=== PATIENT | female | born 1940 | race African-American/Black ===

== ENCOUNTER → 2024-08-29 | Emergency (ER) | payer MEDICARE, MEDICAID ==
[~2024-08-29] MED LIST: FURO10VI3 IVP; INSLIS SUBCUT; MIDO5TAB4 PO; PANT40VI IV; POLY17PO43 PO; QUET25TA PO; TOBR40VI2 INH; [UNRECOGNIZED DRUG - CODE] IV
== END | disposition home or self-care (01) ==
LOC: ER 23:21
DX: R79.89 Other specified abnormal findings of blood chemistry (principal); Z53.21 Procedure and treatment not carried out due to patient leaving prior to being seen by health care provider
CPT/HCPCS: 82962

== ENCOUNTER 2024-09-06 02:53 | Inpatient (IN) | payer MEDICARE, MEDICAID ==
[~2024-09-06] VITALS: Ht 193 cm; Wt 93.5 kg
[2024-09-06] VITALS (23 sets, daily range): BP systolic 88–128; BP diastolic 37–77; PULSE 76–107; RESP 13–24; TEMP 36.6–37; O2SAT 86–100
[~2024-09-06 02:53] MED LIST changes: -POLY17PO43 PO; -TOBR40VI2 INH
[2024-09-06] MEDS ORDERED: CEFEPIME 2GM IN DEXT 5% 100ML IV ONE (03:30)
[2024-09-06] MEDS: CEFEPIME 2,000MG in DEXT 5% WATER 100ML IV NR (03:56)
[2024-09-06] MEDS: SODIUM CHLORIDE 0.9% (SEPSIS BOLUS) IV ONE (03:56)
[2024-09-06 04:00] LABS: HEMATOCRIT. 23.9 % (36.0-48.0); HEMOGLOBIN. 7.7 g/dL (12.0-16.0); MEAN PLATELET VOLUME 9.2 fl (7.4-10.4); PLATELET 115 x1000/uL (130-400); RED BLOOD CELL COUNT 2.79 mill/uL (4.2-5.4); RED CELL DISTRIBUTION WIDTH 20.2 % (11.6-14.6)
[2024-09-06 04:10] LABS: INR 1.2
[2024-09-06 04:30] LABS: LACTIC ACID 2.3 mmol/L (0.4-2.0)
[2024-09-06 04:41] LABS: CREATININE 0.6 mg/dL (0.6-1.0); UREA NITROGEN BLOOD 35 mg/dL (9-23)
[2024-09-06 04:43] LABS: ASPARTATE AMINOTRANSFERASE 28 IU/L (<34); BILIRUBIN DIRECT 0.2 mg/dL (<=3.0); BILIRUBIN TOTAL 0.5 mg/dL (0.1-1.0); PROTEIN TOTAL 6.0 g/dL (6.0-8.3)
[2024-09-06 04:48] LABS: LYMPHOCYTES % MANUAL 8.0 % (20.0-60.0); MONOCYTES % MANUAL 12.0 % (2.0-8.0); NEUTROPHILS % MANUAL 80.0 % (45.0-75.0); PLATELET ESTIMATE NORMAL; TROPONIN I HIGH SENSITIVITY 50 ng/L (3.0-34)
[2024-09-06] MEDS: VANCOMYCIN 1G PREMIX 200 ML IV ONE (04:49)
[2024-09-06] MEDS ORDERED: CEFEPIME 2GM IN DEXT 5% 100ML IV SCH (07:45)
[2024-09-06 08:22] LABS: BG BASE EXCESS 13.0 mmol/L (-2.0-3.0); BG CARBOXYHEMOGLOBIN 0.6 % (0.5-1.5); BG DEOXYHEMOGLOBIN 0.8 % (0.0-5.0); BG FRACTION INSPIRED OXYGEN 40; BG HCO3 ACT 34.7 mmol/L (21.0-28.0); BG METHEMOGLOBIN 0.3 % (0.5-1.5); BG OXYGEN SATURATION 99.2 % (94.0-98.0); BG OXYHEMOGLOBIN 98.3 % (94.0-98.0); BG PCO2 31.9 mmHg (32.0-45.0); BG PEEP (cmH2O) 5.0 cmH2O; BG PH 7.655 (7.350-7.450); BG PO2 129.1 mmHg (83.0-108.0); BG SAMPLE SITE RIGHT RADIAL; BG TIDAL VOLUME(mL) 500.0 mL; BG TOTAL HEMOGLOBIN 7.0 g/dL (12.0-16.0); BG VENT MODE VENT - AC; BG VENT RATE 16.0 set
[2024-09-06] MEDS ORDERED: FUROSEMIDE 20MG/2ML VIAL IVP SCH (10:15)
[2024-09-06] MEDS ORDERED: DEXTROSE 50% WATER 50ML SYRINGE IV PRN (11:45)
[2024-09-06] MEDS: BLOOD SUGAR DIAGNOSTIC STRIP TEST SCH (12:30)
[2024-09-06] MEDS: INSULIN LISPRO 100 UNITS/ML SUBCUT SCH (13:00)
[2024-09-06] MEDS ORDERED: PIPERACILLIN/TAZO 3.375G/50ML 50 ML IV SCH (14:00)
[2024-09-06] MEDS: FUROSEMIDE 40MG/4ML VIAL IVP SCH (14:19)
[2024-09-06] MEDS: MIDODRINE HCL 5MG TABLET PO SCH (14:20)
[2024-09-06] MEDS: GUAIFENESIN 200MG/10ML SUGAR FREE UDC PO SCH (14:20)
[2024-09-06] MEDS: ENOXAPARIN 40MG/0.4ML SYR SUBCUT SCH (14:21)
[2024-09-06] MEDS: QUETIAPINE FUMARATE 25MG TABLET PO SCH (14:21)
[2024-09-06] MEDS: IPRATROPIUM/ALBUTEROL 0.5-3(2.5)MG/3ML NEB HHN SCH (14:41)
[2024-09-06] MEDS ORDERED: CEFEPIME 2GM/100ML 100 ML IV SCH (17:00)
[2024-09-06 17:20] LABS: HEMATOCRIT. 24.0 % (36.0-48.0); HEMOGLOBIN. 7.5 g/dL (12.0-16.0); MEAN PLATELET VOLUME 9.0 fl (7.4-10.4); PLATELET 141 x1000/uL (130-400); RED BLOOD CELL COUNT 2.75 mill/uL (4.2-5.4); RED CELL DISTRIBUTION WIDTH 19.9 % (11.6-14.6)
[2024-09-06] MEDS: CEFEPIME 2,000MG in DEXT 5% WATER 100ML IV SCH (17:30)
[2024-09-06 17:48] LABS: LYMPHOCYTES % MANUAL 5.0 % (20.0-60.0); MONOCYTES % MANUAL 15.0 % (2.0-8.0); NEUTROPHILS % MANUAL 80.0 % (45.0-75.0); PLATELET ESTIMATE NORMAL
[2024-09-06] MEDS: VANCOMYCIN 1GM PMX (XELLIA) 200 ML IV SCH (18:41)
[2024-09-06] MEDS: PANTOPRAZOLE SODIUM 40 MG/VIAL IV SCH (18:41)
[2024-09-06] MEDS: ACETAMINOPHEN 325MG TABLET PO PRN (21:56)
[2024-09-07] VITALS (37 sets, daily range): BP systolic 69–133; BP diastolic 31–60; PULSE 67–100; RESP 14–30; TEMP 35.94732–36.9; O2SAT 91–100
[2024-09-07] MEDS: SODIUM CHLORIDE 0.9% 500 ML IV ONE ×2 (00:08→06:11)
[2024-09-07] MEDS: MIDODRINE HCL 5MG TABLET PO SCH (00:21)
[2024-09-07 02:58] LABS: CLARITY URINE CLEAR (CLEAR); COLOR URINE YELLOW (YELLOW); GLUCOSE URINE NEGATIVE (NEGATIVE); KETONES URINE NEGATIVE (NEGATIVE); LEUKOCYTE ESTERASE URINE 2+ (NEGATIVE); NITRITE URINE NEGATIVE (NEGATIVE); OCCULT BLOOD URINE NEGATIVE (NEGATIVE); PH URINE 5.0 (4.5-8.0); PROTEIN URINE NEGATIVE (NEGATIVE); SPECIFIC GRAVITY URINE 1.017 (1.005-1.030); UROBILINOGEN URINE 1.0 E.U./dL (0.2-1.0)
[2024-09-07 03:23] LABS: SQUAMOUS EPITHELIAL CELL URINE FEW /lpf (RARE/1+)
[2024-09-07 03:24] LABS: RBC URINE 0-2 /hpf (0-2)
[2024-09-07 03:27] LABS: BACTERIA URINE NONE SEEN; YEAST URINE 1+
[2024-09-07 06:23] LABS: CREATININE 0.5 mg/dL (0.6-1.0); UREA NITROGEN BLOOD 28 mg/dL (9-23)
[2024-09-07 06:41] LABS: PLATELET 127 x1000/uL (130-400); RED BLOOD CELL COUNT 2.29 mill/uL (4.2-5.4); RED CELL DISTRIBUTION WIDTH 19.4 % (11.6-14.6)
[2024-09-07 09:04] LABS: BG BASE EXCESS 10.7 mmol/L (-2.0-3.0); BG CARBOXYHEMOGLOBIN 0.5 % (0.5-1.5); BG DEOXYHEMOGLOBIN 1.6 % (0.0-5.0); BG FRACTION INSPIRED OXYGEN 35; BG HCO3 ACT 33.0 mmol/L (21.0-28.0); BG METHEMOGLOBIN 0.3 % (0.5-1.5); BG OXYGEN SATURATION 98.4 % (94.0-98.0); BG OXYHEMOGLOBIN 97.6 % (94.0-98.0); BG PCO2 34.5 mmHg (32.0-45.0); BG PEEP (cmH2O) 5.0 cmH2O; BG PH 7.599 (7.350-7.450); BG PO2 102.8 mmHg (83.0-108.0); BG SAMPLE SITE LEFT RADIAL; BG TIDAL VOLUME(mL) 450.0 mL; BG TOTAL HEMOGLOBIN 7.7 g/dL (12.0-16.0); BG VENT MODE VENT - AC; BG VENT RATE 12.0 set
[2024-09-07] MEDS ORDERED: LIDOCAINE HCL 1% 10 MG/ML 10ML VIAL ONE (10:47)
[2024-09-07 14:17] LABS: PHOSPHORUS 2.1 mg/dL (2.5-4.9)
[2024-09-07] MEDS: KCL 20MEQ/100ML PREMIX 100 ML IV SCH (14:17)
[2024-09-07] MEDS: POTASSIUM CHLORIDE 20MEQ/PACKET PO SCH (14:18)
[2024-09-07] MEDS: CEFEPIME 2GM/100ML 100 ML IV SCH (18:00)
[2024-09-07 20:23] LABS: PLATELET 157 x1000/uL (130-400); RED BLOOD CELL COUNT 2.87 mill/uL (4.2-5.4); RED CELL DISTRIBUTION WIDTH 18.6 % (11.6-14.6)
[2024-09-08] VITALS (23 sets, daily range): BP systolic 106–136; BP diastolic 48–99; PULSE 82–98; RESP 10–23; TEMP 36.2–37.7; O2SAT 95–100
[2024-09-08 05:17] LABS: BASOPHILS % 0.4 % (0.0-2.0); EOSINOPHILS % 2.4 % (0.0-5.0); HEMATOCRIT. 24.9 % (36.0-48.0); HEMOGLOBIN. 7.5 g/dL (12.0-16.0); LYMPHOCYTES % 8.3 % (20.0-50.0); MEAN PLATELET VOLUME 8.8 fl (7.4-10.4); MONOCYTES % 11.7 % (2.0-8.0); NEUTROPHILS % 77.2 % (40.0-76.0); PLATELET 176 x1000/uL (130-400); RED BLOOD CELL COUNT 2.76 mill/uL (4.2-5.4); RED CELL DISTRIBUTION WIDTH 19.3 % (11.6-14.6)
[2024-09-08 05:42] LABS: CREATININE 0.5 mg/dL (0.6-1.0)
[2024-09-08 05:43] LABS: UREA NITROGEN BLOOD 28 mg/dL (9-23)
[2024-09-08] MEDS: VANCOMYCIN 1.25GM/250ML 250 ML IV SCH (21:12)
[2024-09-08] MEDS ORDERED: NALOXONE HCL 0.4MG/ML VIAL IV PRN (22:45)
[2024-09-09] VITALS (21 sets, daily range): BP systolic 99–136; BP diastolic 54–77; PULSE 82–100; RESP 15–27; TEMP 36.6–37.1; O2SAT 96–100
[2024-09-09 07:09] LABS: HEMATOCRIT. 24.5 % (36.0-48.0); HEMOGLOBIN. 7.8 g/dL (12.0-16.0); MEAN PLATELET VOLUME 8.4 fl (7.4-10.4); PLATELET 214 x1000/uL (130-400); RED BLOOD CELL COUNT 2.83 mill/uL (4.2-5.4); RED CELL DISTRIBUTION WIDTH 18.3 % (11.6-14.6)
[2024-09-09 07:27] LABS: CREATININE 0.4 mg/dL (0.6-1.0); UREA NITROGEN BLOOD 24 mg/dL (9-23)
[2024-09-09 11:41] LABS: BG BASE EXCESS 7.9 mmol/L (-2.0-3.0); BG CARBOXYHEMOGLOBIN 0.7 % (0.5-1.5); BG DEOXYHEMOGLOBIN 1.5 % (0.0-5.0); BG FRACTION INSPIRED OXYGEN 35; BG HCO3 ACT 30.8 mmol/L (21.0-28.0); BG METHEMOGLOBIN 0.3 % (0.5-1.5); BG OXYGEN SATURATION 98.5 % (94.0-98.0); BG OXYHEMOGLOBIN 97.5 % (94.0-98.0); BG PCO2 36.2 mmHg (32.0-45.0); BG PEEP (cmH2O) 5.0 cmH2O; BG PH 7.548 (7.350-7.450); BG PO2 104.4 mmHg (83.0-108.0); BG SAMPLE SITE RIGHT RADIAL; BG TIDAL VOLUME(mL) 450.0 mL; BG TOTAL HEMOGLOBIN 8.5 g/dL (12.0-16.0); BG VENT MODE VENT - AC; BG VENT RATE 12.0 set
[2024-09-09 14:22] LABS: BAND% 1.0 % (1.0-6.0); EOSINOPHILS % MANUAL 1.0 % (0.0-5.0); LYMPHOCYTES % MANUAL 6.0 % (20.0-60.0); MONOCYTES % MANUAL 11.0 % (2.0-8.0); NEUTROPHILS % MANUAL 81.0 % (45.0-75.0); PLATELET ESTIMATE NORMAL
[2024-09-09] MEDS ORDERED: FLUCONAZOLE 100MG TABLET PO SCH (15:00)
[2024-09-09] MEDS: POTASSIUM CHLORIDE 20MEQ/PACKET PO SCH (15:19)
[2024-09-09] MEDS: FLUCONAZOLE 200MG/5ML ORAL SYR PO SCH (17:31)
[2024-09-10] VITALS (24 sets, daily range): BP systolic 88–119; BP diastolic 45–99; PULSE 66–97; RESP 2–27; TEMP 37–38.3; O2SAT 93–100
[2024-09-10 07:52] LABS: BASOPHILS % 0.4 % (0.0-2.0); EOSINOPHILS % 1.0 % (0.0-5.0); HEMATOCRIT. 22.4 % (36.0-48.0); HEMOGLOBIN. 7.1 g/dL (12.0-16.0); LYMPHOCYTES % 12.2 % (20.0-50.0); MEAN PLATELET VOLUME 8.6 fl (7.4-10.4); MONOCYTES % 12.9 % (2.0-8.0); NEUTROPHILS % 73.5 % (40.0-76.0); PLATELET 222 x1000/uL (130-400); RED BLOOD CELL COUNT 2.54 mill/uL (4.2-5.4); RED CELL DISTRIBUTION WIDTH 19.0 % (11.6-14.6)
[2024-09-10 08:11] LABS: CREATININE 0.6 mg/dL (0.6-1.0); UREA NITROGEN BLOOD 30 mg/dL (9-23)
[2024-09-10] MEDS: POLYETHYLENE GLYCOL 3350 (17GM) 1 DOSE PACK PO SCH (12:14)
[2024-09-11] VITALS (23 sets, daily range): BP systolic 94–126; BP diastolic 46–75; PULSE 67–94; RESP 15–37; TEMP 36.5–37.9; O2SAT 96–100
[2024-09-11] MEDS: TOBRAMYCIN SULFATE 40MG/ML 2ML INH SCH (00:02)
[2024-09-11 07:02] LABS: HEMATOCRIT. 26.3 % (36.0-48.0); MEAN PLATELET VOLUME 8.4 fl (7.4-10.4); PLATELET 258 x1000/uL (130-400); RED BLOOD CELL COUNT 3.01 mill/uL (4.2-5.4); RED CELL DISTRIBUTION WIDTH 18.6 % (11.6-14.6)
[2024-09-11 07:28] LABS: HEMOGLOBIN. 8.3 g/dL (12.0-16.0)
[2024-09-11 07:32] LABS: CREATININE 0.6 mg/dL (0.6-1.0); UREA NITROGEN BLOOD 29 mg/dL (9-23)
[2024-09-11 11:56] LABS: CLARITY URINE CLEAR (CLEAR); COLOR URINE YELLOW (YELLOW); GLUCOSE URINE NEGATIVE (NEGATIVE); KETONES URINE NEGATIVE (NEGATIVE); LEUKOCYTE ESTERASE URINE NEGATIVE (NEGATIVE); NITRITE URINE NEGATIVE (NEGATIVE); OCCULT BLOOD URINE NEGATIVE (NEGATIVE); PH URINE 8.0 (4.5-8.0); PROTEIN URINE 1+ (NEGATIVE); SPECIFIC GRAVITY URINE 1.014 (1.005-1.030); UROBILINOGEN URINE 1.0 E.U./dL (0.2-1.0)
[2024-09-11 12:18] LABS: BACTERIA URINE FEW; RBC URINE NONE SEEN /hpf (0-2); SQUAMOUS EPITHELIAL CELL URINE NONE SEEN /lpf (RARE/1+); YEAST URINE FEW
[2024-09-11] MEDS: SODIUM HYPOCHLORITE 0.125% 473ML SOLUTION TOP SCH (13:22)
[2024-09-11 18:47] LABS: LYMPHOCYTES % MANUAL 6.0 % (20.0-60.0); MONOCYTES % MANUAL 12.0 % (2.0-8.0); NEUTROPHILS % MANUAL 82.0 % (45.0-75.0)
[2024-09-11 18:48] LABS: PLATELET ESTIMATE NORMAL
[2024-09-12] VITALS (23 sets, daily range): BP systolic 100–140; BP diastolic 49–87; PULSE 90–118; RESP 16–40; TEMP 36.4–36.7; O2SAT 95–100
[2024-09-12] MEDS: MORPHINE SULFATE 2 MG/ML INJ (NOT FOR IM USE) IV PRN (03:47)
[2024-09-12] MEDS: HYDROCODONE/ACETAMINOPHEN 5/325MG TABLET PO PRN (08:17)
[2024-09-12] MEDS ORDERED: SORBITOL 70% SOLN 30ML PO SCH (10:00)
[2024-09-12 15:59] LABS: UREA NITROGEN BLOOD 27 mg/dL (9-23)
[2024-09-12 16:04] LABS: CREATININE 0.4 mg/dL (0.6-1.0)
[2024-09-13] VITALS (23 sets, daily range): BP systolic 113–137; BP diastolic 54–69; PULSE 74–121; RESP 14–34; TEMP 36.4–38.4; O2SAT 96–100
[2024-09-13] MEDS ORDERED: NALOXONE HCL 0.4MG/ML VIAL IV PRN (13:30)
[2024-09-13] MEDS: HYDROCODONE/ACETAMINOPHEN 5/325MG TABLET PO PRN (13:51)
[2024-09-13 16:34] LABS: HEMATOCRIT. 25.6 % (36.0-48.0); HEMOGLOBIN. 7.9 g/dL (12.0-16.0); MEAN PLATELET VOLUME 7.8 fl (7.4-10.4); PLATELET 342 x1000/uL (130-400); RED BLOOD CELL COUNT 2.94 mill/uL (4.2-5.4); RED CELL DISTRIBUTION WIDTH 18.9 % (11.6-14.6)
[2024-09-13 16:53] LABS: CREATININE 0.4 mg/dL (0.6-1.0); UREA NITROGEN BLOOD 23 mg/dL (9-23)
[2024-09-13 18:04] LABS: EOSINOPHILS % MANUAL 1.0 % (0.0-5.0); LYMPHOCYTES % MANUAL 16.0 % (20.0-60.0); MONOCYTES % MANUAL 19.0 % (2.0-8.0); NEUTROPHILS % MANUAL 64.0 % (45.0-75.0); PLATELET ESTIMATE NORMAL
[2024-09-14] VITALS (17 sets, daily range): BP systolic 114–130; BP diastolic 52–63; PULSE 87–101; RESP 16–25; TEMP 36.2–37.3; O2SAT 98–100
[2024-09-14] MEDS ORDERED: MIDO5TAB4 PO (10:45)
[2024-09-14] MEDS ORDERED: TOBR40VI2 INH (10:45)
[2024-09-14] MEDS ORDERED: POLY17PO43 PO (10:45)
[2024-09-14] MEDS: HYDROCODONE/ACETAMINOPHEN 5/325MG TABLET PO PRN (13:48)
== END 2024-09-14 17:00 | DRG 870 ==
LOC: ER 02:53 → EDBEDREQ 04:08 → 5EST 05:09 → EDBEDREQSVC 05:12 → EDBEDREQ 05:12 → CANRESERV 06:00 → ENRESERV 06:00
PROVIDERS: ADMIT Family Medicine Adult Medicine; ATTEND Family Medicine Adult Medicine
PROC: 5A1955Z Respiratory Ventilation, Greater than 96 Consecutive Hours (ICD-10-PCS; principal; 2024-09-06)
PROC: 30233N1 Transfusion of Nonautologous Red Blood Cells into Peripheral Vein, Percutaneous Approach (ICD-10-PCS; 2024-09-07)
DX: A41.52 Sepsis due to Pseudomonas (principal); L89.154 Pressure ulcer of sacral region, stage 4; J96.21 Acute and chronic respiratory failure with hypoxia; J15.1 Pneumonia due to Pseudomonas; E87.4 Mixed disorder of acid-base balance; G93.40 Encephalopathy, unspecified; D62 Acute posthemorrhagic anemia; B37.49 Other urogenital candidiasis; E46 Unspecified protein-calorie malnutrition; Z99.11 Dependence on respirator [ventilator] status; Z20.822 Contact with and (suspected) exposure to COVID-19; R65.20 Severe sepsis without septic shock; I11.0 Hypertensive heart disease with heart failure; I50.9 Heart failure, unspecified; R13.10 Dysphagia, unspecified; D50.9 Iron deficiency anemia, unspecified; E11.51 Type 2 diabetes mellitus with diabetic peripheral angiopathy without gangrene; E11.621 Type 2 diabetes mellitus with foot ulcer; E66.9 Obesity, unspecified; E78.5 Hyperlipidemia, unspecified; F03.90 Unspecified dementia, unspecified severity, without behavioral disturbance, psychotic disturbance, mood disturbance, and anxiety; L97.519 Non-pressure chronic ulcer of other part of right foot with unspecified severity; L97.529 Non-pressure chronic ulcer of other part of left foot with unspecified severity; Z74.01 Bed confinement status; Z79.4 Long term (current) use of insulin; Z87.440 Personal history of urinary (tract) infections; Z93.1 Gastrostomy status; Z86.73 Personal history of transient ischemic attack (TIA), and cerebral infarction without residual deficits; Z88.0 Allergy status to penicillin; Z93.0 Tracheostomy status; Z68.25 Body mass index [BMI] 25.0-25.9, adult
CPT/HCPCS: 31720; 36415; 36600; 71045; 73521; 80048; 80076; 80202; 81003; 82375; 82805; 82962; 83036; 83605; 83735; 83880; 84100; 84132; 84145; 84484; 85025; 85027; 86850; 86900; 86920; 87070; 87077; 87106; 87186; 87426; 93005; 94002; 94003; 94070; 94640; 94664; 94760; 98960; 99291; A4606; J0692; J1650; J1815; J1940; J2003; J2270; J2470; J3260; J3370; J3480; J7030; J7060; P9016